=== PATIENT | female | born 1970 | race Native Hawaiian/Other Pacific Islander ===

== ENCOUNTER 2016-07-14 09:40 | Outpatient (CLI) | payer OTHER ==
[~2016-07-14 09:40] MED LIST: ACID REDUCER150 MG OR; ASPIR-8181 MG OR; B-12250 MCG OR; BUSP15TAB2 PO; CELEXA40 MG PO; CLARITIN10 MG PO; LEVEMIR SC; MULTIVITAMI1 OR; NOVOLOG SC; PROM25TA52 PO
[2016-07-14 14:41] LABS: PLATELET COUNT 129 K/uL (152-353)
[2016-07-14 15:02] LABS: POTASSIUM 4.3 mmol/L (3.6-5.2)
== END 2016-07-14 19:14 | disposition home or self-care (01) ==
LOC: LABW 09:40 → RAD 09:40
PROVIDERS: Nurse Practitioner Family
DX: N30.21 Other chronic cystitis with hematuria (principal); N32.89 Other specified disorders of bladder; K76.0 Fatty (change of) liver, not elsewhere classified; K80.80 Other cholelithiasis without obstruction
CPT/HCPCS: 36415; 80053; 85007; 85027; 85651; 86140; 87040

== ENCOUNTER 2016-07-14 15:36 | Inpatient (IN) | payer OTHER ==
[~2016-07-14] VITALS: Ht 158.8 cm; Wt 83.5 kg
[2016-07-14 16:57] VITALS: BP 95/58; TEMP 98.7; Ht 158.8 cm; Wt 83.5 kg
[2016-07-14 20:11] VITALS: BP 77/43; TEMP 98.5
[2016-07-15] VITALS: BP 92/60; TEMP 99.3
[2016-07-15 04:00] VITALS: BP 85/48; TEMP 98.2
[2016-07-15 05:56] LABS: PLATELET COUNT 121 K/uL (152-353)
[2016-07-15 08:00] VITALS: BP 106/69; TEMP 97.8
[2016-07-15 12:00] VITALS: BP 112/67; TEMP 98.1
[2016-07-15 16:00] VITALS: BP 120/61; TEMP 98
[2016-07-15 20:00] VITALS: BP 158/83; TEMP 98.3
[2016-07-16 00:18] VITALS: BP 166/87; TEMP 97.9
[2016-07-16 04:00] VITALS: BP 167/97; TEMP 98.4
[2016-07-16 05:29] LABS: PLATELET COUNT 129 K/uL (152-353)
[2016-07-16 05:43] LABS: POTASSIUM 3.6 mmol/L (3.6-5.2)
[2016-07-16 08:00] VITALS: BP 180/89; TEMP 97.8
[2016-07-16 12:04] VITALS: BP 184/86; TEMP 97.4
[2016-07-16 16:00] VITALS: BP 192/86; TEMP 97.6
[2016-07-16 20:00] VITALS: BP 157/85; TEMP 98
[2016-07-17] VITALS: BP 145/94; TEMP 98.4
[2016-07-17 04:00] VITALS: BP 190/93; TEMP 98
[2016-07-17 05:16] LABS: PLATELET COUNT 176 K/uL (152-353)
[2016-07-17 05:23] LABS: POTASSIUM 3.5 mmol/L (3.6-5.2)
[2016-07-17 08:00] VITALS: BP 186/96; TEMP 98.2
[2016-07-17 12:00] VITALS: BP 208/98; TEMP 98
[2016-07-17 16:00] VITALS: BP 178/110; TEMP 98.2
[2016-07-17] MEDS ORDERED: GABA300C2 PO (16:38)
[2016-07-17] MEDS ORDERED: PREMPRO1 TAB PO (16:39)
[2016-07-17 20:00] VITALS: BP 173/88; TEMP 97.8
[2016-07-18 00:27] VITALS: BP 135/74; TEMP 98
[2016-07-18 04:00] VITALS: BP 168/85; TEMP 98.1
[2016-07-18 04:48] LABS: PLATELET COUNT 158 K/uL (152-353)
[2016-07-18 05:03] LABS: POTASSIUM 3.2 mmol/L (3.6-5.2)
[2016-07-18 08:00] VITALS: BP 198/98; TEMP 98.1
[2016-07-18 12:18] VITALS: BP 193/97; TEMP 98
== END 2016-07-18 17:00 | disposition home or self-care (01) | DRG 872 ==
LOC: MED/SURG 15:36
PROVIDERS: Internal Medicine; Student in an Organized Health Care Education/Training Program; ADMIT Nurse Practitioner Family
DX: A41.89 Other specified sepsis (principal); N39.0 Urinary tract infection, site not specified; N17.8 Other acute kidney failure; E87.1 Hypo-osmolality and hyponatremia; B96.20 Unspecified Escherichia coli [E. coli] as the cause of diseases classified elsewhere; E11.9 Type 2 diabetes mellitus without complications; Z79.4 Long term (current) use of insulin; N30.21 Other chronic cystitis with hematuria; N32.89 Other specified disorders of bladder; K76.0 Fatty (change of) liver, not elsewhere classified; K80.80 Other cholelithiasis without obstruction
CPT/HCPCS: 36415; 80048; 80053; 81000; 82570; 82948; 83516; 83735; 84300; 85007; 85027; 85651; 86039; 86140; 86255; 86671; 87040; 87077; 87086; 87088; 87186; 89050; 94760; 96372; J0360; J1170; J1200; J1644; J1815; J2405; J3475; J3490

== ENCOUNTER 2017-05-04 07:22 | Day surgery (SDC) | payer OTHER ==
[~2017-05-04 07:22] MED LIST changes: +GABA300C2 PO; +PREMPRO1 TAB PO
[2017-05-04 08:44] LABS: PLATELET COUNT 485 K/uL (152-353)
[2017-05-04 08:48] LABS: POTASSIUM 5.1 mmol/L (3.6-5.2)
== END 2017-05-04 14:35 | disposition home or self-care (01) ==
LOC: OR 07:22
PROVIDERS: Student in an Organized Health Care Education/Training Program
PROC: 0FT44ZZ Resection of Gallbladder, Percutaneous Endoscopic Approach (ICD-10-PCS; principal; 2017-05-04)
PROC: 0WQF4ZZ Repair Abdominal Wall, Percutaneous Endoscopic Approach (ICD-10-PCS; 2017-05-04)
DX: K80.10 Calculus of gallbladder with chronic cholecystitis without obstruction (principal); K42.0 Umbilical hernia with obstruction, without gangrene
CPT/HCPCS: 80053; 85027; J0132; J0690; J1100; J1170; J1815; J1885; J2001; J2250; J2405; J2704; J2765; J3010; J3490; S0028

== ENCOUNTER 2017-05-08 17:01 | Emergency (ER) | payer OTHER ==
[~2017-05-08] VITALS: Ht 157.5 cm; Wt 83.9 kg
[2017-05-08 18:12] LABS: PLATELET COUNT 576 K/uL (152-353)
[2017-05-08 19:18] VITALS: BP 136/71; TEMP 98.2
[2017-05-09] MEDS ORDERED: LOVASTATIN20 MG OR (13:33)
[2017-05-09] MEDS ORDERED: BUSPIRONE7.5 MG PO (13:34)
[2017-05-09] MEDS ORDERED: CELEXA40 MG PO (13:34)
[2017-05-09] MEDS ORDERED: LISI20TA31 OR (13:35)
[2017-05-09] MEDS ORDERED: ASPIR-8181 MG OR (13:35)
[2017-05-09] MEDS ORDERED: LEVEMIR SC (13:35)
== END 2017-05-08 19:19 | disposition home or self-care (01) ==
LOC: ED 17:01
DX: E86.9 Volume depletion, unspecified (principal); R11.2 Nausea with vomiting, unspecified; Z98.890 Other specified postprocedural states
CPT/HCPCS: 80053; 82150; 83690; 85027; 96365; 96375; 99284; J1815; J2405; J2550

== ENCOUNTER 2017-05-09 07:30 | Outpatient (CLI) | payer OTHER ==
[2017-05-09] MEDS ORDERED: LOVASTATIN20 MG OR (13:33)
[2017-05-09] MEDS ORDERED: BUSPIRONE7.5 MG PO (13:34)
[2017-05-09] MEDS ORDERED: CELEXA40 MG PO (13:34)
[2017-05-09] MEDS ORDERED: LEVEMIR SC (13:35)
[2017-05-09] MEDS ORDERED: ASPIR-8181 MG OR (13:35)
[2017-05-09] MEDS ORDERED: LISI20TA31 OR (13:35)
== END 2017-05-09 07:41 | disposition short-term general hospital (02) ==
LOC: AMB 07:30
DX: R11.2 Nausea with vomiting, unspecified (principal); R53.1 Weakness
CPT/HCPCS: A0425; A0427

== ENCOUNTER 2017-05-17 13:25 | Outpatient (CLI) | payer OTHER ==
[~2017-05-17 13:25] MED LIST changes: +BUSPIRONE7.5 MG PO; +LISI20TA31 OR; +LOVASTATIN20 MG OR
[2017-05-17] MEDS ORDERED: OXYCODONE PO (13:48)
[2017-05-17] MEDS ORDERED: ACETA PO (13:48)
[2017-05-17] MEDS ORDERED: OMEPRAZOLE40 MG OR (13:48)
== END 2017-05-17 13:39 | disposition short-term general hospital (02) ==
LOC: AMB 13:25
DX: R19.8 Other specified symptoms and signs involving the digestive system and abdomen (principal)
CPT/HCPCS: A0425; A0429

== ENCOUNTER 2017-05-17 13:44 | Emergency (ER) | payer OTHER ==
[~2017-05-17] VITALS: Ht 157.5 cm; Wt 77.1 kg
[2017-05-17 13:35] VITALS: BP 145/80; TEMP 97
[2017-05-17] MEDS ORDERED: OMEPRAZOLE40 MG OR (13:48)
[2017-05-17] MEDS ORDERED: ACETA PO (13:48)
[2017-05-17] MEDS ORDERED: OXYCODONE PO (13:48)
== END 2017-05-17 14:35 | disposition home or self-care (01) ==
LOC: ED 13:44
DX: E11.69 Type 2 diabetes mellitus with other specified complication (principal)
CPT/HCPCS: 99281

== ENCOUNTER 2017-06-18 10:47 | Outpatient (CLI) | payer OTHER ==
[~2017-06-18 10:47] MED LIST changes: +ACETA PO; +OMEPRAZOLE40 MG OR; +OXYCODONE PO
[2017-06-18] MEDS ORDERED: 904272561 PO (11:10)
[2017-06-18] MEDS ORDERED: ZOFRAN ODT8 MG OR (11:11)
[2017-06-18] MEDS ORDERED: BUSPIRONE5 MG PO (11:11)
[2017-06-18] MEDS ORDERED: PROM25TA52 PO (11:11)
== END 2017-06-18 10:58 | disposition short-term general hospital (02) ==
LOC: AMB 10:47
DX: N39.0 Urinary tract infection, site not specified (principal); E11.65 Type 2 diabetes mellitus with hyperglycemia
CPT/HCPCS: A0425; A0429

== ENCOUNTER 2017-06-18 11:04 | Inpatient (IN) | payer OTHER ==
[~2017-06-18] VITALS: Ht 157.5 cm; Wt 84.2 kg
[2017-06-18] VITALS (15 sets, daily range): BP systolic 87–158; BP diastolic 46–86; TEMP 97.7–98.8; Ht 157.5 cm; Wt 84.2 kg
[2017-06-18] MEDS ORDERED: 904272561 PO (11:10)
[2017-06-18] MEDS ORDERED: BUSPIRONE5 MG PO (11:11)
[2017-06-18] MEDS ORDERED: ZOFRAN ODT8 MG OR (11:11)
[2017-06-18] MEDS ORDERED: PROM25TA52 PO (11:11)
[2017-06-18 12:49] LABS: PLATELET COUNT 524 K/uL (152-353)
[2017-06-18 13:05] LABS: POTASSIUM 5.5 mmol/L (3.6-5.2); SODIUM 124 mmol/L (136-145)
[2017-06-18 18:23] LABS: POTASSIUM 4.7 mmol/L (3.6-5.2)
[2017-06-18 20:32] LABS: POTASSIUM 4.8 mmol/L (3.6-5.2)
[2017-06-19] VITALS (24 sets, daily range): BP systolic 104–179; BP diastolic 54–96; TEMP 97.8–98.9
[2017-06-19 01:01] LABS: POTASSIUM 4.6 mmol/L (3.6-5.2)
[2017-06-19 04:55] LABS: POTASSIUM 4.8 mmol/L (3.6-5.2)
[2017-06-19 05:12] LABS: PLATELET COUNT 440 K/uL (152-353)
[2017-06-20] VITALS (13 sets, daily range): BP systolic 101–163; BP diastolic 49–89; TEMP 97.8–98.8
[2017-06-20 05:21] LABS: PLATELET COUNT 435 K/uL (152-353)
[2017-06-20 06:01] LABS: POTASSIUM 4.4 mmol/L (3.6-5.2)
[2017-06-21] VITALS (7 sets, daily range): BP systolic 106–175; BP diastolic 54–74; TEMP 97.7–98.6
[2017-06-21 06:29] LABS: PLATELET COUNT 368 K/uL (152-353)
[2017-06-21 06:42] LABS: POTASSIUM 4.3 mmol/L (3.6-5.2)
[2017-06-22 04:00] VITALS: BP 143/63; TEMP 97.6
[2017-06-22 06:49] LABS: PLATELET COUNT 417 K/uL (152-353)
[2017-06-22 07:23] LABS: POTASSIUM 4.3 mmol/L (3.6-5.2)
[2017-06-22 08:00] VITALS: BP 183/87; TEMP 98
[2017-06-22] MEDS ORDERED: MACROBID100 MG OR (10:50)
[2017-06-22] MEDS ORDERED: 904272561 PO (10:58)
[2017-06-22 12:00] VITALS: BP 187/73; TEMP 98
== END 2017-06-22 17:30 | disposition home or self-care (01) | DRG 638 ==
LOC: ED 11:04 → ICU 14:10 → MED/SURG 06-20 12:07
PROVIDERS: Specialist; ADMIT Emergency Medicine
DX: E10.10 Type 1 diabetes mellitus with ketoacidosis without coma (principal); N39.0 Urinary tract infection, site not specified; I12.0 Hypertensive chronic kidney disease with stage 5 chronic kidney disease or end stage renal disease; N18.5 Chronic kidney disease, stage 5; N13.30 Unspecified hydronephrosis; B96.20 Unspecified Escherichia coli [E. coli] as the cause of diseases classified elsewhere; E10.22 Type 1 diabetes mellitus with diabetic chronic kidney disease; D72.828 Other elevated white blood cell count; E83.42 Hypomagnesemia; Z89.511 Acquired absence of right leg below knee
CPT/HCPCS: 36415; 36600; 51702; 80048; 80053; 81000; 81002; 82805; 82948; 82962; 83735; 84100; 85027; 96365; 96366; 96372; 96374; 96375; 99284; J1956; J1170; J1815; J1885; J2175; J2405; J2550; J3475

== ENCOUNTER 2017-07-06 12:57 | Outpatient (CLI) | payer OTHER ==
[~2017-07-06 12:57] MED LIST changes: +904272561 PO; +BUSPIRONE5 MG PO; +MACROBID100 MG OR; +ZOFRAN ODT8 MG OR
== END 2017-07-06 13:13 | disposition short-term general hospital (02) ==
LOC: AMB 12:57
DX: R11.2 Nausea with vomiting, unspecified (principal)
CPT/HCPCS: A0425; A0429

== ENCOUNTER 2017-07-06 13:13 | Inpatient (IN) | payer OTHER ==
[~2017-07-06] VITALS: Ht 160 cm; Wt 77.3 kg
[2017-07-06 13:15] VITALS: BP 129/72; TEMP 98.1
[2017-07-06 13:30] VITALS: BP 122/75
[2017-07-06 13:55] LABS: PLATELET COUNT 581 K/uL (152-353)
[2017-07-06 18:08] VITALS: BP 121/56; TEMP 98.2; Ht 160 cm; Wt 77.3 kg
[2017-07-06 20:00] VITALS: BP 99/56; TEMP 98.3
[2017-07-07] VITALS: BP 94/54; TEMP 98.7
[2017-07-07 04:00] VITALS: BP 86/52; TEMP 98.3
[2017-07-07 06:05] LABS: PLATELET COUNT 516 K/uL (152-353)
[2017-07-07 08:00] VITALS: BP 101/61; TEMP 98
[2017-07-07 11:49] VITALS: BP 126/51; TEMP 98.8
[2017-07-07 16:00] VITALS: BP 102/62; TEMP 98.6
[2017-07-07 20:00] VITALS: BP 114/66; TEMP 98.4
[2017-07-08] VITALS: BP 101/52; TEMP 98.4
[2017-07-08 04:00] VITALS: BP 106/58; TEMP 98
--- NOTE | 2017-07-08 05:35 | NUR ---
PT COMPLAINING OF ITCHING AFTER PAIN MEDICATION. PT IS NOT IN DISTRESS. WILL FOLLOW UP WITH DR. MENDOZA.
[2017-07-08 05:38] LABS: PLATELET COUNT 504 K/uL (152-353)
[2017-07-08 05:58] LABS: POTASSIUM 4.4 mmol/L (3.6-5.2)
--- NOTE | 2017-07-08 06:11 | NUR ---
CRITICAL CREATININE 3.[address] MENDOZA AT 0610.
--- NOTE | 2017-07-08 07:11 | NUR ---
CRITICAL LAB URINE CULTURE [facility] CALLED TO DR MENDOZA @ [id number].
[2017-07-08 08:00] VITALS: BP 94/60; TEMP 98
[2017-07-08 12:00] VITALS: BP 104/59; TEMP 97.8
[2017-07-08 16:00] VITALS: BP 132/64; TEMP 98.4
[2017-07-08 20:00] VITALS: BP 141/54; TEMP 98.5
[2017-07-09] VITALS: BP 113/53; TEMP 98.4
[2017-07-09 04:00] VITALS: BP 151/75; TEMP 98.5
[2017-07-09 05:47] LABS: PLATELET COUNT 556 K/uL (152-353)
[2017-07-09 08:03] VITALS: BP 126/71; TEMP 98.5
--- NOTE | 2017-07-09 09:45 | NUR ---
PT C/O IV HURTING. IV D/C'D WITH TIP INTACT PRESSURE DRESSING APPLIED. IV STARTED IN L AC WITH A 22G X2 ATTEMPTS. IVF INFUSING WITHOUT ANY PROBLEMS.
[2017-07-09 12:05] VITALS: BP 131/73; TEMP 97.9
[2017-07-09 16:00] VITALS: BP 150/54; TEMP 98.5
[2017-07-09 20:00] VITALS: BP 172/67; TEMP 98.5
[2017-07-10] VITALS: BP 133/70; TEMP 98.6
[2017-07-10 03:58] VITALS: BP 134/71; TEMP 98.4
[2017-07-10 05:46] LABS: PLATELET COUNT 544 K/uL (152-353)
[2017-07-10 06:05] LABS: POTASSIUM 4.6 mmol/L (3.6-5.2)
--- NOTE | 2017-07-10 07:33 | NUR ---
LABS REVIEWED. DR. MCKEON NOTIFIED OF LOW MAG (1.2). NEW ORDERS RECIEVED.
[2017-07-10 08:00] VITALS: BP 156/74; TEMP 98.3
[2017-07-10 12:21] VITALS: BP 137/57; TEMP 97.3
[2017-07-10 16:25] VITALS: BP 149/77; TEMP 98.8
[2017-07-10 20:00] VITALS: BP 159/75; TEMP 98.8
[2017-07-11] VITALS: BP 151/77; TEMP 98.2
[2017-07-11 04:00] VITALS: BP 194/84; TEMP 98.4
--- NOTE | 2017-07-11 05:49 | NUR ---
07/11/17 0548 PT REQUEST PAIN MEDICATION FOR BACK RATED 4/10 .PT TRANSFERRED TO BEDSIDE COMMODE TO VOID.CC
[2017-07-11 06:00] LABS: PLATELET COUNT 612 K/uL (152-353)
[2017-07-11 06:12] LABS: POTASSIUM 4.6 mmol/L (3.6-5.2)
[2017-07-11 08:00] VITALS: BP 177/83; TEMP 98.1
[2017-07-11 12:00] VITALS: BP 154/69; TEMP 98.6
[2017-07-11 16:00] VITALS: BP 153/84; TEMP 98.6
[2017-07-11 20:00] VITALS: BP 161/65; TEMP 98.4
[2017-07-12] VITALS: BP 121/73; TEMP 98.2
[2017-07-12 04:00] VITALS: BP 160/83; TEMP 98.1
[2017-07-12 08:00] VITALS: BP 163/81; TEMP 98.7
[2017-07-12 10:43] LABS: PLATELET COUNT 618 K/uL (152-353)
[2017-07-12 11:02] LABS: POTASSIUM 5.2 mmol/L (3.6-5.2)
[2017-07-12] MEDS ORDERED: MACROBID100 MG OR (11:57)
[2017-07-12 12:00] VITALS: BP 145/83; TEMP 97.9
[2017-07-12 16:00] VITALS: BP 183/89; TEMP 97.8
== END 2017-07-12 18:07 | disposition home or self-care (01) | DRG 682 ==
LOC: ED 13:13 → MED/SURG 14:36
PROVIDERS: Emergency Medicine; ADMIT Family Medicine
DX: N17.8 Other acute kidney failure (principal); K85.80 Other acute pancreatitis without necrosis or infection; N39.0 Urinary tract infection, site not specified; I12.0 Hypertensive chronic kidney disease with stage 5 chronic kidney disease or end stage renal disease; E87.1 Hypo-osmolality and hyponatremia; N18.5 Chronic kidney disease, stage 5; B96.20 Unspecified Escherichia coli [E. coli] as the cause of diseases classified elsewhere; Z91.19 Patient's noncompliance with other medical treatment and regimen; E11.22 Type 2 diabetes mellitus with diabetic chronic kidney disease
CPT/HCPCS: 36415; 80048; 80053; 80061; 81000; 82150; 82948; 83605; 83690; 83735; 83930; 85027; 87040; 87077; 87086; 87088; 87186; 96365; 96372; 96374; 96375; 99284; J0696; J1170; J1200; J1644; J1815; J1885; J2405

== ENCOUNTER 2017-08-27 08:45 | Outpatient (CLI) | payer OTHER | END 2017-08-27 22:44 | disposition home or self-care (01) | LOC: RAD 08:45 | DX: R60.0 Localized edema (principal) ==

== ENCOUNTER 2017-09-02 15:43 | Emergency (ER) | payer OTHER ==
[~2017-09-02] VITALS: Ht 157.5 cm; Wt 82.1 kg
[2017-09-02 18:14] LABS: PLATELET COUNT 510 K/uL (152-353)
[2017-09-02 18:21] LABS: POTASSIUM 4.6 mmol/L (3.6-5.2)
[2017-09-02 20:38] VITALS: BP 95/57; TEMP 99.4
== END 2017-09-02 20:42 | disposition home or self-care (01) ==
LOC: ED 15:43
DX: N39.0 Urinary tract infection, site not specified (principal); N18.9 Chronic kidney disease, unspecified; E11.9 Type 2 diabetes mellitus without complications; R06.02 Shortness of breath
CPT/HCPCS: 36415; 80053; 81000; 83880; 85027; 87088; 96374; 99284; J1940

== ENCOUNTER 2017-09-07 07:27 | Outpatient (CLI) | payer OTHER | END 2017-09-07 07:43 | disposition short-term general hospital (02) | LOC: AMB 07:27 | DX: M79.601 Pain in right arm (principal); W18.39XA Other fall on same level, initial encounter; Y92.098 Other place in other non-institutional residence as the place of occurrence of the external cause | CPT/HCPCS: A0425; A0429 ==

== ENCOUNTER 2017-09-07 07:50 | Emergency (ER) | payer OTHER ==
[~2017-09-07] VITALS: Ht 157.5 cm; Wt 86.6 kg
[2017-09-07 07:45] VITALS: TEMP 98.1
[2017-09-07 09:20] VITALS: BP 116/60
== END 2017-09-07 09:59 | disposition home or self-care (01) ==
LOC: ED 07:50
DX: S42.91XA Fracture of right shoulder girdle, part unspecified, initial encounter for closed fracture (principal); W18.39XA Other fall on same level, initial encounter; Y92.89 Other specified places as the place of occurrence of the external cause
CPT/HCPCS: 96372; 99281; J1885

== ENCOUNTER 2017-09-10 14:05 | Outpatient (CLI) | payer OTHER ==
[2017-09-11] MEDS ORDERED: AMLODIPINE BESYLATE PO (00:28)
[2017-09-11] MEDS ORDERED: MEVACOR40 MG PO (00:30)
[2017-09-11] MEDS ORDERED: KETO10TA34 PO (00:32)
== END 2017-09-10 14:25 | disposition short-term general hospital (02) ==
LOC: AMB 14:05
DX: R10.84 Generalized abdominal pain (principal); R19.09 Other intra-abdominal and pelvic swelling, mass and lump; E11.649 Type 2 diabetes mellitus with hypoglycemia without coma
CPT/HCPCS: A0425; A0427

== ENCOUNTER 2017-09-10 14:27 | Inpatient (IN) | payer OTHER ==
[~2017-09-10] VITALS: Ht 157.5 cm; Wt 89.6 kg
[2017-09-10 14:35] VITALS: BP 107/46; TEMP 98.4
[2017-09-10 15:29] LABS: PLATELET COUNT 440 K/uL (152-353)
[2017-09-10 16:33] LABS: POTASSIUM 6.1 mmol/L (3.6-5.2)
[2017-09-11 00:03] VITALS: BP 99/52; TEMP 98.8; Ht 157.5 cm; Wt 89.6 kg
[2017-09-11] MEDS ORDERED: AMLODIPINE BESYLATE PO (00:28)
[2017-09-11] MEDS ORDERED: MEVACOR40 MG PO (00:30)
[2017-09-11] MEDS ORDERED: KETO10TA34 PO (00:32)
[2017-09-11 06:21] LABS: POTASSIUM 6.3 mmol/L (3.6-5.2)
[2017-09-11 09:22] VITALS: BP 112/55; TEMP 97.8
[2017-09-11 10:13] LABS: PLATELET COUNT 421 K/uL (152-353)
[2017-09-11 10:32] LABS: POTASSIUM 6.4 mmol/L (3.6-5.2)
== END 2017-09-11 14:15 | disposition short-term general hospital (02) | DRG 683 ==
LOC: ED 14:27 → MED/SURG 19:20
PROVIDERS: Emergency Medicine
DX: N17.8 Other acute kidney failure (principal); N39.0 Urinary tract infection, site not specified; I12.0 Hypertensive chronic kidney disease with stage 5 chronic kidney disease or end stage renal disease; N18.5 Chronic kidney disease, stage 5; E11.22 Type 2 diabetes mellitus with diabetic chronic kidney disease; D64.89 Other specified anemias; E87.5 Hyperkalemia; Z89.511 Acquired absence of right leg below knee
CPT/HCPCS: 36415; 36591; 80048; 80053; 81000; 85027; 87077; 87086; 87088; 87186; 96360; 99284; J1650; J2185; J3490

== ENCOUNTER 2018-05-18 16:56 | Outpatient (CLI) | payer OTHER ==
[~2018-05-18 16:56] MED LIST changes: +AMLODIPINE BESYLATE PO; +KETO10TA34 PO; +MEVACOR40 MG PO
== END 2018-05-18 17:07 | disposition short-term general hospital (02) ==
LOC: AMB 16:56
DX: R06.03 Acute respiratory distress (principal)
CPT/HCPCS: A0425; A0433

== ENCOUNTER 2018-07-07 14:42 | Outpatient (CLI) | payer OTHER ==
[2018-07-07 15:22] LABS: POTASSIUM 4.6 mmol/L (3.6-5.2)
[2018-07-08] MEDS ORDERED: OMEP40CA PO (16:29)
[2018-07-08] MEDS ORDERED: K-TABS10 MEQ PO (16:30)
[2018-07-08] MEDS ORDERED: K-TAB10 MEQ PO (16:32)
[2018-07-08] MEDS ORDERED: FURO20TA67 PO (16:34)
[2018-07-08] MEDS ORDERED: NOVOLOG100 UNIT/M SC (16:35)
[2018-07-08] MEDS ORDERED: GLIP10TA55 PO (16:36)
[2018-07-08] MEDS ORDERED: CALCITRIOL0.25 MCG PO (16:36)
[2018-07-08] MEDS ORDERED: CARV3.12 PO (16:37)
[2018-07-08] MEDS ORDERED: LIPITOR40 MG PO (16:38)
== END 2018-07-07 19:16 | disposition home or self-care (01) ==
LOC: LAB 14:42
PROVIDERS: Internal Medicine Nephrology
DX: N17.8 Other acute kidney failure (principal); N18.5 Chronic kidney disease, stage 5; E11.9 Type 2 diabetes mellitus without complications
CPT/HCPCS: 80048

== ENCOUNTER 2018-07-08 09:34 | Outpatient (CLI) | payer OTHER ==
[2018-07-08] MEDS ORDERED: OMEP40CA PO (16:29)
[2018-07-08] MEDS ORDERED: K-TABS10 MEQ PO (16:30)
[2018-07-08] MEDS ORDERED: K-TAB10 MEQ PO (16:32)
[2018-07-08] MEDS ORDERED: FURO20TA67 PO (16:34)
[2018-07-08] MEDS ORDERED: NOVOLOG100 UNIT/M SC (16:35)
[2018-07-08] MEDS ORDERED: CALCITRIOL0.25 MCG PO (16:36)
[2018-07-08] MEDS ORDERED: GLIP10TA55 PO (16:36)
[2018-07-08] MEDS ORDERED: CARV3.12 PO (16:37)
[2018-07-08] MEDS ORDERED: LIPITOR40 MG PO (16:38)
== END 2018-07-08 09:45 | disposition short-term general hospital (02) ==
LOC: AMB 09:34
DX: R41.82 Altered mental status, unspecified (principal); E10.9 Type 1 diabetes mellitus without complications
CPT/HCPCS: A0425; A0427

== ENCOUNTER 2018-07-08 09:45 | Observation (INO) | payer OTHER ==
[2018-07-08] VITALS (13 sets, daily range): BP systolic 90–190; BP diastolic 43–99; TEMP 98.3–99.7; Ht 157.5 cm; Wt 73.5 kg
[~2018-07-08] VITALS: Ht 157.5 cm; Wt 73.5 kg
[2018-07-08 10:43] LABS: POTASSIUM 5.3 mmol/L (3.6-5.2)
[2018-07-08 11:41] LABS: PLATELET COUNT 465 K/uL (152-353)
[2018-07-08] MEDS ORDERED: OMEP40CA PO (16:29)
[2018-07-08] MEDS ORDERED: K-TABS10 MEQ PO (16:30)
[2018-07-08] MEDS ORDERED: K-TAB10 MEQ PO (16:32)
[2018-07-08] MEDS ORDERED: FURO20TA67 PO (16:34)
[2018-07-08] MEDS ORDERED: NOVOLOG100 UNIT/M SC (16:35)
[2018-07-08] MEDS ORDERED: CALCITRIOL0.25 MCG PO (16:36)
[2018-07-08] MEDS ORDERED: GLIP10TA55 PO (16:36)
[2018-07-08] MEDS ORDERED: CARV3.12 PO (16:37)
[2018-07-08] MEDS ORDERED: LIPITOR40 MG PO (16:38)
[2018-07-09 04:00] VITALS: BP 137/69; TEMP 98.8
[2018-07-09 08:00] VITALS: BP 132/63; TEMP 98.3
== END 2018-07-09 09:50 | disposition home or self-care (01) ==
LOC: ED 09:48 → MED/SURG 12:28
PROVIDERS: ADMIT Emergency Medicine
DX: I12.0 Hypertensive chronic kidney disease with stage 5 chronic kidney disease or end stage renal disease (principal); E11.649 Type 2 diabetes mellitus with hypoglycemia without coma; E11.22 Type 2 diabetes mellitus with diabetic chronic kidney disease; N18.6 End stage renal disease; K21.9 Gastro-esophageal reflux disease without esophagitis; E78.49 Other hyperlipidemia; Z89.611 Acquired absence of right leg above knee; R41.82 Altered mental status, unspecified
CPT/HCPCS: 80053; 82947; 83880; 85027; 93005; 96374; 99220; 99284; G0378; J2310

== ENCOUNTER 2018-10-19 02:34 | Outpatient (CLI) | payer OTHER ==
[~2018-10-19 02:34] MED LIST changes: +CALCITRIOL0.25 MCG PO; +CARV3.12 PO; +FURO20TA67 PO; +GLIP10TA55 PO; +K-TAB10 MEQ PO; +K-TABS10 MEQ PO; +LIPITOR40 MG PO; +NOVOLOG100 UNIT/M SC; +OMEP40CA PO
== END 2018-10-19 02:44 | disposition short-term general hospital (02) ==
LOC: AMB 02:34
DX: E16.1 Other hypoglycemia (principal); R41.0 Disorientation, unspecified; W18.30XA Fall on same level, unspecified, initial encounter; Y92.018 Other place in single-family (private) house as the place of occurrence of the external cause
CPT/HCPCS: A0425; A0427

== ENCOUNTER 2018-10-19 02:46 | Emergency (ER) | payer OTHER ==
[~2018-10-19] VITALS: Ht 160 cm; Wt 73.5 kg
[2018-10-19 03:34] LABS: PLATELET COUNT 334 K/uL (152-353)
[2018-10-19 03:46] LABS: POTASSIUM 3.9 mmol/L (3.6-5.2); SODIUM 132 mmol/L (136-145)
[2018-10-19 07:05] VITALS: BP 126/59; TEMP 97.6
== END 2018-10-19 07:07 | disposition short-term general hospital (02) ==
LOC: ED 02:57
PROVIDERS: Internal Medicine
PROC: 0T9B70Z Drainage of Bladder with Drainage Device, Via Natural or Artificial Opening (ICD-10-PCS; principal; 2018-10-19)
DX: I50.9 Heart failure, unspecified (principal); N18.6 End stage renal disease; Z99.2 Dependence on renal dialysis; E11.649 Type 2 diabetes mellitus with hypoglycemia without coma; Z89.511 Acquired absence of right leg below knee
CPT/HCPCS: 36415; 51702; 80053; 80307; 81000; 82140; 82550; 82947; 82962; 84484; 85027; 87077; 87086; 87088; 87186; 93005; 99285

== ENCOUNTER 2018-10-19 07:08 | Outpatient (CLI) | payer OTHER | END 2018-10-19 08:35 | disposition short-term general hospital (02) | LOC: AMB 07:08 | DX: E11.22 Type 2 diabetes mellitus with diabetic chronic kidney disease (principal); N18.6 End stage renal disease; Z99.2 Dependence on renal dialysis; E16.1 Other hypoglycemia | CPT/HCPCS: A0425; A0427 ==

== ENCOUNTER 2018-11-17 09:05 | Outpatient (CLI) | payer OTHER | END 2018-11-17 20:15 | disposition home or self-care (01) | LOC: LAB 09:05 | DX: E83.52 Hypercalcemia (principal) | CPT/HCPCS: 36415; 82310 ==

== ENCOUNTER 2018-12-06 12:48 | Outpatient (CLI) | payer OTHER | END 2018-12-06 13:00 | disposition short-term general hospital (02) | LOC: AMB 12:48 | DX: E11.9 Type 2 diabetes mellitus without complications (principal); Z99.2 Dependence on renal dialysis; N19 Unspecified kidney failure | CPT/HCPCS: A0425; A0429 ==

== ENCOUNTER 2018-12-06 13:05 | Emergency (ER) | payer OTHER ==
[~2018-12-06] VITALS: Ht 160 cm; Wt 73.5 kg
[2018-12-06 14:32] LABS: PLATELET COUNT 338 K/uL (152-353)
[2018-12-06 15:00] VITALS: TEMP 97.6
[2018-12-06 15:04] LABS: POTASSIUM 7.3 mmol/L (3.6-5.2)
[2018-12-06 16:20] VITALS: BP 108/64
== END 2018-12-06 16:25 | disposition short-term general hospital (02) ==
LOC: ED 13:05
PROVIDERS: Emergency Medicine
DX: N19 Unspecified kidney failure (principal); Z99.2 Dependence on renal dialysis; E87.5 Hyperkalemia; E87.1 Hypo-osmolality and hyponatremia; I49.8 Other specified cardiac arrhythmias; I45.19 Other right bundle-branch block; I44.5 Left posterior fascicular block
CPT/HCPCS: 36415; 80053; 82550; 82553; 83605; 84484; 85027; 87040; 87077; 87185; 87205; 93005; 96361; 96365; 96375; 99285; J0610; J1815; J7060

== ENCOUNTER 2019-10-29 15:14 | Emergency (ER) | payer OTHER ==
[~2019-10-29] VITALS: Ht 160 cm; Wt 77.1 kg
[2019-10-29 16:05] LABS: PLATELET COUNT 229 K/uL (152-353)
[2019-10-29 16:24] LABS: POTASSIUM 7.6 mmol/L (3.6-5.2)
[2019-10-29 22:08] VITALS: BP 128/81; TEMP 98.8
== END 2019-10-29 22:09 | disposition short-term general hospital (02) ==
LOC: ED 15:14
PROVIDERS: Emergency Medicine
DX: N17.8 Other acute kidney failure (principal); E87.5 Hyperkalemia; E11.9 Type 2 diabetes mellitus without complications; Z99.2 Dependence on renal dialysis
CPT/HCPCS: 36415; 80053; 83880; 85027; 93005; 96372; 96374; 99284; J1815; J7060

== ENCOUNTER 2019-11-08 14:10 | Outpatient (CLI) | payer OTHER | END 2019-11-08 19:10 | disposition home or self-care (01) | LOC: LAB 14:10 | DX: D64.89 Other specified anemias (principal); N18.6 End stage renal disease | CPT/HCPCS: 85014; 85018 ==

== ENCOUNTER 2019-12-13 16:55 | Emergency (ER) | payer OTHER ==
[~2019-12-13] VITALS: Ht 160 cm; Wt 77.1 kg
[2019-12-13 16:55] VITALS: TEMP 98.8
[2019-12-13 17:44] LABS: PLATELET COUNT 289 K/uL (152-353)
[2019-12-13 23:00] VITALS: BP 168/66
== END 2019-12-13 23:00 | disposition short-term general hospital (02) ==
LOC: ED 16:55
PROVIDERS: Emergency Medicine
DX: J12.89 Other viral pneumonia (principal); I50.9 Heart failure, unspecified; N18.6 End stage renal disease; Z99.2 Dependence on renal dialysis
CPT/HCPCS: 80053; 83605; 83880; 85027; 87040; 93005; 96365; 96366; 96375; 99284; J0456; J0696; J2405

== ENCOUNTER 2021-05-07 16:23 | Emergency (ER) | payer OTHER ==
[~2021-05-07] VITALS: Ht 160 cm; Wt 77.1 kg
[2021-05-08 01:35] VITALS: BP 148/81; TEMP 97.9
== END 2021-05-08 01:40 ==
LOC: ED 16:23
DX: G25.2 Other specified forms of tremor (principal); N18.6 End stage renal disease; Z99.2 Dependence on renal dialysis; F41.8 Other specified anxiety disorders; E11.9 Type 2 diabetes mellitus without complications
CPT/HCPCS: 82948; 99282

== ENCOUNTER 2022-12-11 08:17 | Outpatient (CLI) | payer OTHER ==
[2022-12-11 10:33] LABS: POTASSIUM 4.1 mmol/L (3.6-5.2)
[2022-12-11 10:39] LABS: PLATELET COUNT 234 K/uL (152-353)
== END 2022-12-11 18:56 | disposition home or self-care (01) ==
LOC: LAB 08:17
PROVIDERS: ATTEND Internal Medicine
DX: E11.22 Type 2 diabetes mellitus with diabetic chronic kidney disease (principal); N18.6 End stage renal disease; I50.9 Heart failure, unspecified; D63.1 Anemia in chronic kidney disease; Z16.24 Resistance to multiple antibiotics; I12.0 Hypertensive chronic kidney disease with stage 5 chronic kidney disease or end stage renal disease
CPT/HCPCS: 80053; 80061; 80162; 82306; 83036; 85027; 87081

== ENCOUNTER 2023-01-21 14:00 | Outpatient (CLI) | payer OTHER | END 2023-01-21 19:26 | disposition home or self-care (01) | LOC: RAD 14:00 | PROVIDERS: ATTEND Internal Medicine | DX: R05.9 Cough, unspecified (principal) ==